=== PATIENT | male | born 1995 | race Caucasian/White ===

== ENCOUNTER 2017-01-08 10:39 | Emergency (ER) | payer BC ==
[~2017-01-08] VITALS: Ht 182.9 cm; Wt 66.8 kg
[~2017-01-08 10:39] MED LIST: ASPI-390 PO; NAPR1TAB9 PO
[2017-01-08 10:45] VITALS: TEMP 37.1; Ht 182.9 cm; Wt 66.8 kg
[2017-01-08 10:51] VITALS: O2SAT 99
--- NOTE | 2017-01-08 11:29 | EMERGENCY ROOM VISIT NOTE ---
History Report prepared by Carissa: Marvin Herrera Under the Supervision of: Dr. Annabella Hua D.O. First contact with patient: 11:13 Chief Complaint: SYNCOPE Stated Complaint: SYNCOPE Nursing Triage Summary: pt works at [employer] this am pt took 3 energy pills called "danny" pt never used them before, after taking them pt had unwitnessed syncopal episode unknown length of loc on arrival to ER pt c/o headache and leg pain pt is drowsy and sleeping intermittently pt will answer quest appropriately, pt pupils are dialated but reactive pt appears disinterested in his ER visit History of Present Illness The patient is a 21 year old male who presents to the Emergency Room with complaints of a syncopal episode that occurred prior to arrival this morning. The patient's lost consciousness for an unknown amount of time, and the episode was witnessed by one coworker. He was working outside for [employer] during the episode. The patient says that he has been having a headache this morning, and vomited 2 or 3 times. He also had a bit of diarrhea. The patient says that he is currently very groggy and tired. The patient says that he gets headaches fairly often. He states that he has blacked out before, and he felt this episode coming on. His prior episodes of blacking out were due to the heat, and the last episode was in middle school. The patient adds that he took 3 energy pills called "Danny" yesterday for the first time. He says that he did not have breakfast this morning, but this is not unusual for him. He denies any current blurry vision. He also denies any recent fevers, chills, or numbness/ tingling. The patient says he has not been on any new medications. He does not drink alcohol, and he denies any recreational drug use. ' Source of History: patient Onset: Prior to arrival this morning Position: other (global - syncopal episode) Symptom Intensity: unknown amount of time Timing: other (episode) Associated Symptoms: + headache, + vomiting, + diarrhea, + fatigue, No fevers, No chills, No numbness Note: Associated symptoms: Feels groggy. [place] the episode coming on. Denies current blurry vision. Denies any tingling. Review of Systems See HPI for pertinent positives & negatives. A total of 10 systems reviewed and were otherwise negative. Past Medical & Surgical Medical Problems: (1) No chronic problems Family History No pertinent family history Social History Smoking Status: Current Every Day Smoker Alcohol Use: occasionally Marital Status: single Housing Status: lives alone Current/Historical Medications No Active Prescriptions or Reported Meds Allergies Coded Allergies: No Known Allergies (Unverified , 03/08/15) Physical Exam Vital Signs Date Time Temp Pulse Resp B/P (MAP) Pulse Ox O2 Delivery O2 Flow Rate FiO2 01/08/17 13:44 68 27 97 01/08/17 13:31 123/71 01/08/17 13:14 71 30 98 01/08/17 13:01 120/67 01/08/17 12:44 67 23 97 01/08/17 12:43 60 18 116/57 98 Room Air 01/08/17 12:10 93 18 116/73 98 Room Air 01/08/17 10:51 99 Room Air 01/08/17 10:45 37.1 75 20 119/65 95 Room Air Physical Exam GENERAL: somnolent appearing but easily aroused, well nourished, no distress, non-toxic EYE EXAM: normal conjunctiva, pupils dilated but both reactive to light, and EOM 's grossly intact OROPHARYNX: no exudate, no erythema, lips, buccal mucosa, and tongue normal and mucous membranes are moist NECK: supple, no nuchal rigidity, no adenopathy, non-tender LUNGS: Clear to auscultation. Normal chest wall mechanics HEART: no murmurs, S1 normal and S2 normal ABDOMEN: abdomen soft, non-tender, normo-active bowel sounds, no masses, no rebound or guarding. BACK: Back is symmetrical on inspection and there is no deformity, no midline tenderness, no CVA tenderness. SKIN: no rashes and no bruising UPPER EXTREMITIES: upper extremities are grossly normal. LOWER EXTREMITIES: No pitting edema. NEURO EXAM: Normal sensorium, cranial nerves II-XII grossly intact, normal speech, no gross weakness of arms, no gross weakness of legs. No drift. Finger to nose intact. Gross sensation intact. Medical Decision & Procedures ER Provider Diagnostic Interpretation: CT results have been interpreted by the radiologist and reviewed by me. CT SCAN OF THE BRAIN WITHOUT IV CONTRAST CLINICAL HISTORY: Headache. Syncope. COMPARISON STUDY: CT of the brain dated 03/08/2015. TECHNIQUE: Unenhanced axial CT scan of the brain is performed from the vertex to the skull base. Automated dose control exposure was utilized. CT DOSE: 773.57 mGy.cm FINDINGS: Brain parenchyma: The brain parenchyma is normal in appearance. There is no hemorrhage, mass effect, or evidence of acute territorial ischemia by CT criteria. Gutierrez-white matter is preserved. No extra-axial fluid collection is seen. Ventricles, sulci, cisterns: Normal in configuration. Intracranial vasculature: The visualized intracranial vasculature at the skull base is normal in appearance. Calvarium: Unremarkable. Sinuses and mastoids: The visualized paranasal sinuses are clear. The mastoid air cells are well pneumatized. Orbits: The bony orbits are grossly intact. IMPRESSION: No acute intracranial abnormality. Electronically signed by: Nader Oliveira M.D. 01/08/2017 12:37 PM Dictated Date/Time: 01/08/2017 12:34 PM Laboratory Results 01/08/17 12:05 Red Blood Count 4.86, Mean Corpuscular Volume 92.2, Mean Corpuscular Hemoglobin 34.4, Mean Corpuscular Hemoglobin Concent 37.3, Mean Platelet Volume 10.0, Neutrophils (%) (Auto) 78.0, Lymphocytes (%) (Auto) 18.8, Monocytes (%) (Auto) 2.9, Eosinophils (%) (Auto) 0.0, Basophils (%) (Auto) 0.2, Neutrophils # (Auto) 7.22, Lymphocytes # (Auto) 1.74, Monocytes # (Auto) 0.27, Eosinophils # (Auto) 0.00, Basophils # (Auto) 0.02 01/08/17 12:05 Test 01/08/17 12:05 01/08/17 14:15 White Blood Count 9.26 K/uL (4.8-10.8) Red Blood Count 4.86 M/uL (4.7-6.1) Hemoglobin 16.7 g/dL (14.0-18.0) Hematocrit 44.8 % (42-52) Mean Corpuscular Volume 92.2 fL (80-100) Mean Corpuscular Hemoglobin 34.4 pg (25-34) Mean Corpuscular Hemoglobin Concent 37.3 g/dl (32-36) Platelet Count 213 K/uL (130-400) Mean Platelet Volume 10.0 fL (7.4-10.4) Neutrophils (%) (Auto) 78.0 % Lymphocytes (%) (Auto) 18.8 % Monocytes (%) (Auto) 2.9 % Eosinophils (%) (Auto) 0.0 % Basophils (%) (Auto) 0.2 % Neutrophils # (Auto) 7.22 K/uL (1.4-6.5) Lymphocytes # (Auto) 1.74 K/uL (1.2-3.4) Monocytes # (Auto) 0.27 K/uL (0.11-0.59) Eosinophils # (Auto) 0.00 K/uL (0-0.5) Basophils # (Auto) 0.02 K/uL (0-0.2) RDW Standard Deviation 41.8 fL (36.4-46.3) RDW Coefficient of Variation 12.3 % (11.5-14.5) Immature Granulocyte % (Auto) 0.1 % Immature Granulocyte # (Auto) 0.01 K/uL (0.00-0.02) Anion Gap 6.0 mmol/L (3-11) Est Creatinine Clear Calc Drug Dose 129.2 ml/min Estimated GFR () 143.0 Estimated GFR (Non- 123.4 BUN/Creatinine Ratio 14.7 (10-20) Calcium Level 9.4 mg/dl (8.5-10.1) Total Bilirubin 1.3 mg/dl (0.2-1) Aspartate Amino Transf (AST/SGOT) 26 U/L (15-37) Alanine Aminotransferase (ALT/SGPT) 35 U/L (12-78) Alkaline Phosphatase 76 U/L (45-117) Troponin I < 0.015 ng/ml (0-0.045) Total Protein 7.9 gm/dl (6.4-8.2) Albumin 4.5 gm/dl (3.4-5.0) Globulin 3.4 gm/dl (2.5-4.0) Albumin/Globulin Ratio 1.3 (0.9-2) Ethyl Alcohol mg/dL < 3.0 mg/dl (0-3) Urine Opiates Screen POS (NEG) Urine Methadone, Qualitative NEG (NEG) Urine Barbiturates NEG (NEG) Urine Phencyclidine (PCP) Level NEG (NEG) Ur Amphetamine/Methamphetamine NEG (NEG) MDMA (Ecstasy) Screen NEG (NEG) Urine Benzodiazepines Screen NEG (NEG) Urine Cocaine Metabolite POS (NEG) Urine Marijuana (THC) NEG (NEG) Laboratory results per my review. Medications Administered Medications (Trade) Dose Ordered Sig/Iban Route Start Time Stop Time Status Last Admin Dose Admin Sodium Chloride 1,000 ml @ 999 mls/hr Q1H1M STAT IV 01/08/17 11:37 01/08/17 12:37 DC 01/08/17 12:09 999 MLS/HR ECG Indication: syncope Rate (beats per minute): 74 Rhythm: normal sinus Findings: no acute ischemic change, no ectopy, other (normal axis, normal intervals, no evidence of WPW, no evidence of Brugada) ED Course 1120: The patient was evaluated in room C4. A complete history and physical exam was performed. 1137: Ordered NSS 1000 ml @ 999 mls/hr IV. 1322: I reevaluated the patient and he is still somnolent. I updated him on results, and he denies any current complaints. 1404: Upon reevaluation, the patient is awake now and wants to go home. I discussed the findings and the treatment plan with the patient. He verbalizes agreement and understanding. He was discharged home. Medical Decision Triage Nursing notes reviewed. Differential diagnosis: Etiologies such as vasovagal event, infection, hypoglycemia, electrolyte abnormalities, cardiac sources, intracerebral event, toxicologic, neurologic, as well as others were entertained. Medication Reconciliation: I attest that I have personally reviewed the patient' s current medication list. Blood pressure screening: Patient was found to have normal blood pressure on screening and does not require follow-up. Patient uncooperative with bedside testing, refused to allow nursing to perform orthostatic vital signs. Patient not willing to elaborate about the events leading to his arrival in the emergency room. But denied any no symptoms at bedside and had a normal physical exam including neuro exam. Labs and imaging reassuring on the patient, no dysrhythmias noted on telemetry, vital signs otherwise stable throughout. Patient provided urine specimen just prior to discharge, however stated he needed to leave due to the availability of his ride. After patient had left urine drug screen was positive for opiates and cocaine. Patient not hypoxic, no anemia, no significant leukocytosis, no evidence of electrolyte abnormalities. Doubt ACS, tamponade, effusion, dissection, TIA/CVA, PE, bacteremia/sepsis, perforation, occult GI bleed. Patient inability to the bathroom with a steady gait and was tolerating sips of by mouth at bedside prior to discharge. Impression Primary Impression: Syncope Additional Impression: Substance abuse Scribe Attestation The scribe's documentation has been prepared under my direction and personally reviewed by me in its entirety. I confirm that the note above accurately reflects all work, treatment, procedures, and medical decision making performed by me. Departure Information Dispostion Home / Self-Care Prescriptions No Active Prescriptions or Reported Meds Referrals No Doctor, Assigned (PCP) Forms HOME CARE DOCUMENTATION FORM, IMPORTANT VISIT INFORMATION Patient Instructions [facility] Additional Instructions Please try to establish a local family doctor to help with health maintenance and screening. Please eat and drink regularly. If you have any recurrent episodes of lightheadedness dizziness, blackouts, develop chest pains or palpitations, headaches, blurry vision, trouble breathing, numbness or tingling , recurrent vomiting, or you've any other new concerns, please return the emergency room. Problem Qualifiers Primary Impression: Syncope Syncope type: unspecified Qualified Codes: R55 - Syncope and collapse
[2017-01-08] MEDS ORDERED: SODIUM CHLORIDE 0.9% 1000ML 1,000 ML IV STA (11:37)
[2017-01-08 12:19] LABS: BASO % 0.2 %; BASO ABS # 0.02 K/uL (0-0.2); COMPLETE YES; HEMATOCRIT 44.8 % (42-52); IG% 0.1 %; LYMPH % 18.8 %; LYMPH ABS # 1.74 K/uL (1.2-3.4); MEAN CELL VOLUME 92.2 fL (80-100); MEAN CORPUSCULAR HEMOGLOBIN 34.4 pg (25-34); MEAN CORPUSCULAR HGB CONC 37.3 g/dl (32-36); MONO % 2.9 %; PLATELET COUNT 213 K/uL (130-400); RED BLOOD COUNT 4.86 M/uL (4.7-6.1); WHITE BLOOD COUNT 9.26 K/uL (4.8-10.8)
[2017-01-08 12:37] LABS: ALT/SGPT 35 U/L (12-78); AST/SGOT 26 U/L (15-37); BLOOD UREA NITROGEN 12 mg/dl (7-18); BUN/CREATININE RATIO 14.7 (10-20); CALCIUM 9.4 mg/dl (8.5-10.1); CARBON DIOXIDE 28 mmol/L (21-32); CHLORIDE 106 mmol/L (98-107); CREATININE 0.84 mg/dl (0.60-1.40); GLUCOSE 97 mg/dl (70-99); POTASSIUM 4.1 mmol/L (3.5-5.1); SODIUM 140 mmol/L (136-145)
--- NOTE | 2017-01-08 12:38 | DIAGNOSTIC IMAGING REPORT ---
CT SCAN OF THE BRAIN WITHOUT IV CONTRAST CLINICAL HISTORY: Headache. Syncope. COMPARISON STUDY: CT of the brain dated 03/08/2015. TECHNIQUE: Unenhanced axial CT scan of the brain is performed from the vertex to the skull base. Automated dose control exposure was utilized. CT DOSE: 773.57 mGy.cm FINDINGS: Brain parenchyma: The brain parenchyma is normal in appearance. There is no hemorrhage, mass effect, or evidence of acute territorial ischemia by CT criteria. Gutierrez-white matter is preserved. No extra-axial fluid collection is seen. Ventricles, sulci, cisterns: Normal in configuration. Intracranial vasculature: The visualized intracranial vasculature at the skull base is normal in appearance. Calvarium: Unremarkable. Sinuses and mastoids: The visualized paranasal sinuses are clear. The mastoid air cells are well pneumatized. Orbits: The bony orbits are grossly intact. IMPRESSION: No acute intracranial abnormality. Electronically signed by: Nader Oliveira M.D. 01/08/2017 12:37 PM Dictated Date/Time: 01/08/2017 12:34 PM
[2017-01-08 12:41] LABS: ALB/GLOB RATIO 1.3 (0.9-2); ALKALINE PHOSPHATASE 76 U/L (45-117)
[2017-01-08 13:31] VITALS: BP 123/71
[2017-01-08 13:44] VITALS: PULSE 68; O2SAT 97
[2017-01-08 14:49] LABS: BENZODIAZEPINE, URINE NEG (NEG); COCAINE,URINE POS (NEG); PHENCYCLIDINE, URINE NEG (NEG)
[2017-01-12 14:32] LABS: COCAINE, URINE 32600 NG/ML (CUTOFF=100); COD UR NEGATIVE NG/ML (CUTOFF=50); HYDROCOD UR NEGATIVE NG/ML (CUTOFF=50); HYDROMOR UR NEGATIVE NG/ML (CUTOFF=50); MORPHINE UR 888 NG/ML (CUTOFF=50); NORHYDROCODONE CONF UR NEGATIVE NG/ML (CUTOFF=50); OXYMORPH UR NEGATIVE NG/ML (CUTOFF=50)
== END 2017-01-08 14:57 | disposition home or self-care (01) ==
LOC: EDBD 10:39 → C.EDC 10:44
DX: R55 Syncope and collapse (principal); F11.10 Opioid abuse, uncomplicated; F14.10 Cocaine abuse, uncomplicated; F17.200 Nicotine dependence, unspecified, uncomplicated

== ENCOUNTER 2017-03-23 09:36 | Emergency (ER) | payer SELFPAY ==
[~2017-03-23] VITALS: Ht 182.9 cm; Wt 65.6 kg
[2017-03-23 09:38] VITALS: TEMP 36.8; Ht 182.9 cm; Wt 65.6 kg
[2017-03-23] MEDS ORDERED: CYCLOBENZAPRINE HCL 10 MG TAB PO STA (10:00)
[2017-03-23] MEDS ORDERED: IBUPROFEN 600 MG TAB PO STA (10:00)
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
--- NOTE | 2017-03-23 10:43 | DIAGNOSTIC IMAGING REPORT ---
C-SPINE ROUTINE 4 OR 5 VIEWS HISTORY: Pain neck pain COMPARISON: None. FINDINGS: The cervical spine is visualized from C1 through the superior endplate of T1. There is no fracture. No subluxation. Disc spaces are preserved. Prevertebral soft tissues and the atlantodens interval are intact. IMPRESSION: No fracture or subluxation within the cervical spine. The above report was generated using voice recognition software. It may contain grammatical, syntax or spelling errors. Electronically signed by: Sean Serna M.D. 03/23/2017 10:42 AM Dictated Date/Time: 03/23/2017 10:41 AM
--- NOTE | 2017-03-23 10:44 | DIAGNOSTIC IMAGING REPORT ---
LUMBAR SPINE 5 VIEWS CLINICAL HISTORY: Low back pain. FINDINGS: 5 views of the lumbar spine are obtained. No prior studies are available for comparison at the time of dictation. The skeletal structures are well mineralized. There is no radiographic evidence of fracture or malalignment. Vertebral body height and alignment are maintained. The transverse and spinous processes are intact. There is no evidence of spondylolysis. The intervertebral disc spaces are well-maintained. The visualized bony pelvis appears intact. There is a nonobstructed abdominal bowel gas pattern. IMPRESSION: Unremarkable radiographic evaluation of the lumbosacral spine. Electronically signed by: Nader Oliveira M.D. 03/23/2017 10:43 AM Dictated Date/Time: 03/23/2017 10:43 AM
[2017-03-23] MEDS ORDERED: IBUP-1451 PO (11:10)
[2017-03-23] MEDS ORDERED: CYCL10TA6 PO (11:10)
[2017-03-23 11:28] VITALS: BP 107/65; PULSE 68; O2SAT 96
== END 2017-03-23 11:28 | disposition home or self-care (01) ==
LOC: C.EDB 09:37
DX: S16.1XXA Strain of muscle, fascia and tendon at neck level, initial encounter (principal); S39.012A Strain of muscle, fascia and tendon of lower back, initial encounter; X50.1XXA Overexertion from prolonged static or awkward postures, initial encounter; Y92.89 Other specified places as the place of occurrence of the external cause; Y99.0 Civilian activity done for income or pay; F17.210 Nicotine dependence, cigarettes, uncomplicated

== ENCOUNTER 2017-05-20 16:51 | Emergency (ER) | payer SELFPAY ==
[~2017-05-20] VITALS: Ht 182.9 cm; Wt 67.8 kg
[~2017-05-20 16:51] MED LIST changes: -ASPI-390 PO; +IBUP-1451 PO; -NAPR1TAB9 PO
[2017-05-20 16:57] VITALS: Ht 182.9 cm; Wt 67.8 kg
[2017-05-20] MEDS ORDERED: SODIUM CHLORIDE 0.9% 1000ML 1,000 ML IV STA (17:07)
[2017-05-20] MEDS ORDERED: CEFTRIAXONE SOD INJ 1 GM ADDVIAL IV STA (17:07)
[2017-05-20 17:39] LABS: BASO % 0.1 %; BASO ABS # 0.02 K/uL (0-0.2); COMPLETE YES; EOS % 0.5 %; HEMATOCRIT 37.2 % (42-52); IG% 0.3 %; LYMPH % 14.9 %; LYMPH ABS # 2.43 K/uL (1.2-3.4); MEAN CORPUSCULAR HEMOGLOBIN 32.8 pg (25-34); MEAN PLATELET VOLUME 9.6 fL (7.4-10.4); MONO % 4.4 %; NEUT % 79.8 %; PLATELET COUNT 229 K/uL (130-400); RED BLOOD COUNT 4.09 M/uL (4.7-6.1); WHITE BLOOD COUNT 16.28 K/uL (4.8-10.8)
--- NOTE | 2017-05-20 17:58 | DIAGNOSTIC IMAGING REPORT ---
R ELBOW MIN 3 VIEWS ROUTINE CLINICAL HISTORY: Right arm erythema, edema. ?Retained needle. COMPARISON: None FINDINGS: Alignment of the right elbow is anatomic. No acute fracture, joint effusion or radiopaque foreign body is identified. Diffuse soft tissue swelling is noted. IMPRESSION: 1. No acute fracture, joint effusion or radiopaque foreign body identified. 2. No radiographic evidence of osteomyelitis. Diffuse soft tissue swelling. Electronically signed by: Amado Boston M.D. 05/20/2017 5:57 PM Dictated Date/Time: 05/20/2017 5:56 PM
[2017-05-20 18:08] LABS: ALT/SGPT 15 U/L (12-78); AST/SGOT 11 U/L (15-37); BLOOD UREA NITROGEN 9 mg/dl (7-18); CALCIUM 8.7 mg/dl (8.5-10.1); CARBON DIOXIDE 29 mmol/L (21-32); CHLORIDE 99 mmol/L (98-107); CREATININE 0.62 mg/dl (0.60-1.40); GLUCOSE 133 mg/dl (70-99); POTASSIUM 3.6 mmol/L (3.5-5.1); SODIUM 134 mmol/L (136-145)
[2017-05-20 18:26] LABS: ALB/GLOB RATIO 0.7 (0.9-2); ALKALINE PHOSPHATASE 73 U/L (45-117)
--- NOTE | 2017-05-20 18:46 | DIAGNOSTIC IMAGING REPORT ---
RIGHT UPPER EXTREMITY ULTRASOUND CLINICAL HISTORY: Right AC erythema, edema. Evaluate for abscess. COMPARISON STUDY: Right elbow radiographs performed earlier today. TECHNIQUE: Sonography of the right antecubital fossa at site of swelling was performed. FINDINGS: Extensive edema of the right antecubital fossa was noted. Note was made of several echogenic foci with associated shadowing within the subcutaneous tissues at site of wound. A small amount of adjacent fluid was noted. However, there was no drainable fluid collection. IMPRESSION: 1. No drainable fluid collection. Extensive edema of the right antecubital fossa which suggests cellulitis. 2. Several subcutaneous echogenic foci with shadowing immediately deep to the wound which likely reflects gas which may be related to the wound or a draining abscess. Small amount of adjacent fluid without drainable fluid collection. Electronically signed by: Amado Boston M.D. 05/20/2017 6:44 PM Dictated Date/Time: 05/20/2017 6:40 PM
[2017-05-20] MEDS ORDERED: SULF800T23 PO (19:15)
[2017-05-20] MEDS ORDERED: CEPH500C PO (19:15)
--- NOTE | 2017-05-20 19:16 | EMERGENCY ROOM VISIT NOTE ---
History First contact with patient: 17:00 Chief Complaint: WOUND INFECTION Stated Complaint: ABSCESS RUPTURED ON RT ARM Nursing Triage Summary: Patient states "I've had an abscess on my right arm for a week. It erupted today." History of Present Illness The patient is a 22 year old male who presents to the Emergency Room via private vehicle with complaints of "abscess ruptured on right arm". The patient states that he recently began injecting heroin into his antecubital fossa's. This is bilaterally. He notes that over the past 5-7 days the right flexor crease of the elbow region has been becoming red, and apparently filled with pus. He states that today while shopping the area began to drain a very purulent and foul-smelling material. He notes his tetanus is up-to-date. He believes he had a ruptured abscess. He also notes tremendous swelling to this region. He denies any vomiting but notes some fevers/chills over the past few days. Review of Systems A complete 6-point Review of Systems was discussed with the patient, with pertinent positives and negatives listed in the History of Present Illness. All remaining Review of Systems questions can be considered negative unless otherwise specified. Past Medical/Surgical History Medical Problems: (1) No chronic problems Family History Back pain Scoliosis Social History Smoking Status: Current Every Day Smoker Alcohol Use: occasionally Drug Use: none Marital Status: single Housing Status: lives alone Occupation Status: employed Current/Historical Medications Scheduled Cephalexin Monohydrate (Keflex), 500 MG PO QID Sulfa/Trimethoprim (Bactrim Ds 800MG/160MG), 1 TAB PO BID Physical Exam Vital Signs Date Time Temp Pulse Resp B/P (MAP) Pulse Ox O2 Delivery O2 Flow Rate FiO2 05/20/17 18:45 37.1 103 18 127/65 96 Room Air 05/20/17 16:57 36.9 92 18 128/76 99 Room Air Physical Exam VITAL SIGNS - Vital signs and nursing notes were reviewed. Stable. GENERAL -22-year-old male appearing his stated age who is in no acute distress. Communicates well with provider and answers questions appropriately. SKIN - there is erythema approximately 10 cm x 8 cm overlying the right antecubital fossa, with induration. It is very tender to palpation. There is a central dark region with a small amount of scant draining material. There is no lymphangitic streaking. There is also a small 4 cm x 2 cm similar region on the left anterior tibial fossa without evidence of drainable abscess. HEAD - NC/AT. EXTREMITIES - No clubbing or peripheral cyanosis. Skin as noted above. He is neurovascularly intact in the upper extremities. Full range of motion of these regions. +5/5 strength noted in UE/LE bilaterally. Medical Decision & Procedures ER Provider Diagnostic Interpretation: R ELBOW MIN 3 VIEWS ROUTINE CLINICAL HISTORY: Right arm erythema, edema. ?Retained needle. COMPARISON: None FINDINGS: Alignment of the right elbow is anatomic. No acute fracture, joint effusion or radiopaque foreign body is identified. Diffuse soft tissue swelling is noted. IMPRESSION: 1. No acute fracture, joint effusion or radiopaque foreign body identified. 2. No radiographic evidence of osteomyelitis. Diffuse soft tissue swelling. Electronically signed by: Amado Boston M.D. 05/20/2017 5:57 PM Dictated Date/Time: 05/20/2017 5:56 PM RIGHT UPPER EXTREMITY ULTRASOUND CLINICAL HISTORY: Right AC erythema, edema. Evaluate for abscess. COMPARISON STUDY: Right elbow radiographs performed earlier today. TECHNIQUE: Sonography of the right antecubital fossa at site of swelling was performed. FINDINGS: Extensive edema of the right antecubital fossa was noted. Note was made of several echogenic foci with associated shadowing within the subcutaneous tissues at site of wound. A small amount of adjacent fluid was noted. However, there was no drainable fluid collection. IMPRESSION: 1. No drainable fluid collection. Extensive edema of the right antecubital fossa which suggests cellulitis. 2. Several subcutaneous echogenic foci with shadowing immediately deep to the wound which likely reflects gas which may be related to the wound or a draining abscess. Small amount of adjacent fluid without drainable fluid collection. Electronically signed by: Amado Boston M.D. 05/20/2017 6:44 PM Dictated Date/Time: 05/20/2017 6:40 PM Laboratory Results 05/20/17 17:27 Red Blood Count 4.09, Mean Corpuscular Volume 91.0, Mean Corpuscular Hemoglobin 32.8, Mean Corpuscular Hemoglobin Concent 36.0, Mean Platelet Volume 9.6, Neutrophils (%) (Auto) 79.8, Lymphocytes (%) (Auto) 14.9, Monocytes (%) (Auto) 4.4, Eosinophils (%) (Auto) 0.5, Basophils (%) (Auto) 0.1, Neutrophils # (Auto) 12.98, Lymphocytes # (Auto) 2.43, Monocytes # (Auto) 0.72, Eosinophils # (Auto) 0.08, Basophils # (Auto) 0.02 05/20/17 17:27 Test 05/20/17 17:27 White Blood Count 16.28 K/uL (4.8-10.8) Red Blood Count 4.09 M/uL (4.7-6.1) Hemoglobin 13.4 g/dL (14.0-18.0) Hematocrit 37.2 % (42-52) Mean Corpuscular Volume 91.0 fL (80-100) Mean Corpuscular Hemoglobin 32.8 pg (25-34) Mean Corpuscular Hemoglobin Concent 36.0 g/dl (32-36) Platelet Count 229 K/uL (130-400) Mean Platelet Volume 9.6 fL (7.4-10.4) Neutrophils (%) (Auto) 79.8 % Lymphocytes (%) (Auto) 14.9 % Monocytes (%) (Auto) 4.4 % Eosinophils (%) (Auto) 0.5 % Basophils (%) (Auto) 0.1 % Neutrophils # (Auto) 12.98 K/uL (1.4-6.5) Lymphocytes # (Auto) 2.43 K/uL (1.2-3.4) Monocytes # (Auto) 0.72 K/uL (0.11-0.59) Eosinophils # (Auto) 0.08 K/uL (0-0.5) Basophils # (Auto) 0.02 K/uL (0-0.2) RDW Standard Deviation 39.2 fL (36.4-46.3) RDW Coefficient of Variation 11.8 % (11.5-14.5) Immature Granulocyte % (Auto) 0.3 % Immature Granulocyte # (Auto) 0.05 K/uL (0.00-0.02) Anion Gap 6.0 mmol/L (3-11) Est Creatinine Clear Calc Drug Dose 176.2 ml/min Estimated GFR () > 150.0 Estimated GFR (Non- 138.8 BUN/Creatinine Ratio 14.0 (10-20) Lactic Acid Level 1.2 mmol/L (0.4-2.0) Calcium Level 8.7 mg/dl (8.5-10.1) Total Bilirubin 0.6 mg/dl (0.2-1) Aspartate Amino Transf (AST/SGOT) 11 U/L (15-37) Alanine Aminotransferase (ALT/SGPT) 15 U/L (12-78) Alkaline Phosphatase 73 U/L (45-117) Total Creatine Kinase 34 U/L (39-308) C-Reactive Protein 13.10 mg/dl (0-0.29) Total Protein 8.2 gm/dl (6.4-8.2) Albumin 3.4 gm/dl (3.4-5.0) Globulin 4.8 gm/dl (2.5-4.0) Albumin/Globulin Ratio 0.7 (0.9-2) Medications Administered Medications (Trade) Dose Ordered Sig/Iban Route Start Time Stop Time Status Last Admin Dose Admin Sodium Chloride 1,000 ml @ 999 mls/hr Q1H1M STAT IV 05/20/17 17:07 05/20/17 18:07 DC 05/20/17 17:36 999 MLS/HR Ceftriaxone Sodium (Rocephin Inj) 1 gm NOW STAT IV 05/20/17 17:07 05/20/17 17:09 DC 05/20/17 17:35 1 GM Medical Decision Patient was seen and evaluated as above. He presents to us today with bilateral antecubital fossa erythema. The right is much more pronounced. Ultrasound was obtained. No drainable collection. Leukocytosis of near 16, 000. He was given 1 g Rocephin here. He'll be discharged home on Keflex Bactrim. He was offered inpatient admission, and preferred to go home and see how he did return if worsening. Case was discussed with the attending physician. X-ray was also obtained the elbow to rule out retained needle or foreign body. This was negative for foreign body. No evidence of anything for us to drain here. The region of erythema was circled, and he was informed to take it much worse to return. He was thoroughly educated upon management. This was cleansed, dressed with a bacitracin nonstick bandage and secured with Coban. He was educated upon management, educated upon worrisome symptoms in which to return, had questions about issues, and was discharged home in good condition. He is to follow with [facility] for repeat blood work as he has a new anemia. He denies any areas of bleeding. He denies any blood in stool. He'll be discharged home on Keflex and Bactrim. In evaluation treatment this patient following differential diagnoses were entertained: Abscess, sepsis, cellulitis, among others. Impression Primary Impression: Cellulitis of arm, right Additional Impressions: Cellulitis of arm, left Anemia Departure Information Dispostion Home / Self-Care Condition GOOD Prescriptions Sulfa/Trimethoprim (Bactrim Ds 800MG/160MG) Tab 1 TAB PO BID for 10 Days, #20 TAB Prov: Braxton Worthy PA-C 05/20/17 Cephalexin Monohydrate (Keflex) 500 Mg Cap 500 MG PO QID for 10 Days, #40 CAP Prov: Braxton Worthy PA-C 05/20/17 Referrals No Doctor, Assigned (PCP) Patient Instructions [facility] Additional Instructions You were seen in the emergency Department for an abscess that has drained and infection on your arm, as well as her left arm. There is no drainable collection noted on ultrasound. At this time we will initiate 2 different antibiotics. Keflex, 500 mg every 6 hours for 10 days. Bactrim, one tablet every 12 hours for 10 days. All antibiotics have the potential to cause diarrhea. Stop this medication and contact a medical provider if you were to develop any significant adverse side effects including: wheezing, shortness of breath, passing out, vomiting, or a diffuse rash. Always take antibiotics as directed and COMPLETE the ENTIRE course regardless of the improvement of your symptoms. Please return in 48 hours for recheck of your wound, or return sooner if he develop worsening redness, swelling, drainage or any fever/chills or vomiting. Please return with any new/concerning symptoms. Thank you for your time. Problem Qualifiers
[2017-05-20 19:43] VITALS: BP 125/62; PULSE 100; TEMP 36.8; O2SAT 97
== END 2017-05-20 19:44 | disposition home or self-care (01) ==
LOC: C.EDB 16:52 → C.EDD 19:44
DX: L03.113 Cellulitis of right upper limb (principal); L03.114 Cellulitis of left upper limb; D64.9 Anemia, unspecified; F17.200 Nicotine dependence, unspecified, uncomplicated; F11.10 Opioid abuse, uncomplicated